=== PATIENT | female | born 1990 | race Hispanic/Latino ===

== ENCOUNTER 2023-06-09 17:22 | Emergency (ER) | payer OTHER, SELFPAY ==
[2023-06-09 17:33] VITALS: BP 115/61; PULSE 81; RESP 16; TEMP 36.4; O2SAT 100
[2023-06-09 19:05] LABS: Influenza A QL RT-PCR Negative (Negative); Influenza B QL RT-PCR Negative (Negative); RSV RNA, RT-PCR Negative (Negative); SARS-CoV-2 RNA PCR Negative (Negative)
[2023-06-09 19:16] LABS: Basophils Percent Auto 0.3 % (0.2-1.2); Eosinophils Percent Auto 0.3 % (0-4.4); Hematocrit 36.4 % (37.0-47.0); Hemoglobin 11.9 g/dL (12.0-15.0); Immature Granulocyte Absolute 0.02 K/mm3 (0.00-0.031); Immature Granulocyte Percent A 0.2 % (0-0.5); Lymphocytes Absolute Auto 2.04 K/mm3 (0.9-3.2); Lymphocytes Percent Auto 23.7 % (18.3-44.2); Mean Corpuscular HGB Conc 32.7 g/dl (32-36); Mean Corpuscular Hemoglobin 28.7 pg (26-34); Mean Corpuscular Volume 87.7 fl (80-100); Mean Platelet Volume 9.4 fl (7.4-10.4); Monocytes Absolute Auto 0.6 K/mm3 (0.1-0.6); Monocytes Percent Auto 6.9 % (2.6-8.5); Neutrophils Absolute Auto 5.9 K/mm3 (1.3-6.7); Neutrophils Percent Auto 68.6 % (45.5-73.1); Platelet Count Result 335 k/mm3 (150-375); Red Blood Count 4.15 M/mm3 (4.2-5.4); Red Cell Distribution Width 12.5 % (11.5-14.5); White Blood Count 8.6 K/mm3 (4.5-10.0)
[2023-06-09 19:25] LABS: Lipase 68 U/L (23-300)
[2023-06-09 19:29] LABS: Alanine Aminotransferase 11 U/L (6-35); Albumin Level 4.5 g/dL (3.5-5.1); Alkaline Phosphatase 52 U/L (38-126); Anion Gap 8 mmol/L (8-16); Aspartate Amino Transferase 24 U/L (14-36); Bilirubin,Total 0.6 mg/dL (0.2-1.3); Blood Urea Nitrogen 10 mg/dL (7-17); CRP < 0.5 mg/dL (<1.0); Calcium 9.7 mg/dL (8.4-10.2); Carbon Dioxide 24 mmol/L (22-30); Chloride 103 mmol/L (98-107); Estimated Glomerular Filt Rate > 60; Glucose 88 mg/dL (65-110); Potassium 4.3 mmol/L (3.4-5.0); Sodium 135 mmol/L (137-145)
--- NOTE | 2023-06-09 19:29 | ED.GENADULT ---
HPI - General Adult General Chief complaint: Abdominal Pain Stated complaint: sore throat, acid reflux Time Seen by Provider: 06/09/23 18:16 Source: patient Mode of arrival: ambulatory Limitations: no limitations History of Present Illness HPI narrative: This is a 32-year-old female who presents to the ED with chief complaint of upper abdominal pain for the past 5 days. Reports the pain is a burning pain and radiates to the central chest. She states she feels reflux coming up in the throat at times causing a sore throat.. Also reports this causes her to feel nauseous and she has had a couple episodes of vomiting. Denies any problems with bowel movements, urinary symptoms, fevers, chills, shortness of breath, syncope, sweats. Related Data Allergies Allergy/AdvReac Type Severity Reaction Status Date / Time No Known Allergies Allergy Verified 06/09/23 21:31 Review of Systems Review of Systems: All systems as dictated in HPI Exam Narrative: GENERAL: Well-appearing, well-nourished, and in no acute distress. HEAD: Normocephalic, atraumatic. EYES: PERRLA and EOMI. ENT: Halitosis present Nares clear, no rhinorrhea or epistaxis. Mucous membranes moist. Oropharynx without tonsillar hypertrophy exudate or other lesions. NECK: Supple. No adenopathy or masses. CHEST: No respiratory distress. Clear to auscultation. No wheezes rales or rhonchi HEART: Regular rate and rhythm. No murmur heard. Normal peripheral pulses. ABDOMEN: Soft, nontender, nondistended, normal active bowel sounds. MSK: Normal range of motion. No edema. SKIN: Warm, dry, no rash. NEURO: Alert and oriented x3. No focal deficits. PSYCH: Normal mood and affect. Course Vital Signs Vital signs: Vital Signs Temperature 97.6 F 06/09/23 17:33 Pulse Rate 81 06/09/23 17:33 Respiratory Rate 16 06/09/23 17:33 Blood Pressure 115/61 06/09/23 17:33 Pulse Oximetry 100 06/09/23 17:33 Oxygen Delivery Room Air 06/09/23 17:33 Temperature 97.6 F 06/09/23 17:33 Pulse Rate 77 06/09/23 21:18 Respiratory Rate 20 06/09/23 21:18 Blood Pressure 116/77 06/09/23 21:13 Pulse Oximetry 100 06/09/23 21:18 Oxygen Delivery Room Air 06/09/23 17:33 Medical Decision Making MDM Narrative Medical decision making narrative: This is a 32-year-old female who presents to the ED for chief complaint of epigastric pain and sore throat. She feels a burning that radiates from the epigastrium into the throat. Vitals are normal. Exam is benign. No evidence of acute abdomen. Lab work is grossly unremarkable. Viral swabs negative. Urine test is positive, which is unexpected to the patient. Overall symptoms are consistent with GERD. Discussed with patient that can increase tendency for GERD. She improved greatly with Pepcid and check cocktail here. Prescription for each Pepcid given. OB referral given. Pt will be discharged in stable condition. Return precautions given and supportive measures discussed. Pt is understanding and agreeable with plan for discharge and follow-up with PCP. Vital Signs Vital Signs: Vital Signs Temperature 97.6 F 06/09/23 17:33 Pulse Rate 81 06/09/23 17:33 Respiratory Rate 16 06/09/23 17:33 Blood Pressure 115/61 06/09/23 17:33 Pulse Oximetry 100 06/09/23 17:33 Oxygen Delivery Room Air 06/09/23 17:33 Temperature 97.6 F 06/09/23 17:33 Pulse Rate 77 06/09/23 21:18 Respiratory Rate 20 06/09/23 21:18 Blood Pressure 116/77 06/09/23 21:13 Pulse Oximetry 100 06/09/23 21:18 Oxygen Delivery Room Air 06/09/23 17:33 Lab Data 06/09/23 19:06 06/09/23 19:06 Labs: Lab Results 06/09/23 06/09/23 Range/Units 18:23 19:06 WBC 8.6 (4.5-10.0) K/mm3 RBC 4.15 L (4.2-5.4) M/mm3 Hgb 11.9 L (12.0-15.0) g/dL Hct 36.4 L (37.0-47.0) % MCV 87.7 (80-100) fl MCH 28.7 (26-34) pg MCHC 32.7 (32-36) g/dl
--- NOTE | 2023-06-09 19:30 | ECG_ITS ---
Measurements Intervals [place] Rate: 80 P: 70 MA: 184 QRS: 81 QRSD: 101 T: 50 QT: 352 QTc: 406 Interpretive Statements SINUS RHYTHM NONSPECIFIC T-WAVE ABNORMALITY ABNORMAL ECG NO PREVIOUS ECG AVAILABLE FOR COMPARISON Electronically Signed On 06-10-2023 15:05:54 DELI SLICER by Tod Gay M.D.
[2023-06-09 19:35] LABS: Appearance Urine Clear (Clear); Bacteria Urine Rare /hpf; Bilirubin Urine Negative (Negative); Blood Urine Negative (Negative); Color Urine Yellow (Yellow); Glucose Urine UA Negative (Negative); Ketones Urine 2+ mg/dL (Negative); Leukocyte Esterase Ur Trace LEU/UL (Negative); Mucus Urine Present /lpf; Need Manual Microscopic Reviewed; Nitrate Urine Negative (Negative); Protein Urine 1+ mg/dL (Negative); Specific Grav Ur 1.028 (1.001-1.035); Squamous Epithelial Cell Urine Occasional /hpf (Few); WBC Urine 0-5 /hpf; pH Urine 5.5 (5.0-9.0)
[2023-06-09 19:38] LABS: Add Urine Microscopic? YES
[2023-06-09] MEDS: BELLADONNA ALK/PHENOB ELIX 10 ML, MAG HYDROX/ALUMINUM HYD/SIMETH 30 ML, LIDOCAINE HCL 2... PO (20:32)
[2023-06-09] MEDS: ONDANSETRON INJ 4 MG/2 ML VIAL IV PUSH (20:37)
[2023-06-09] MEDS: FAMOTIDINE 20 MG/2 ML VIAL IV PUSH (20:38)
[2023-06-09 20:41] VITALS: BP 114/70; PULSE 89; RESP 20; O2SAT 100
[2023-06-09] MEDS: Please add drug allergy info to patient profile. 1 EACH XX (20:41)
[2023-06-09 21:13] VITALS: BP 116/77
[2023-06-09 21:18] VITALS: PULSE 77; RESP 20; O2SAT 100
== END 2023-06-09 21:19 | disposition home or self-care (01) ==
PROVIDERS: Emergency Provider Physician Assistant
DX: K21.9 Gastro-esophageal reflux disease without esophagitis (principal); Z20.822 Contact with and (suspected) exposure to COVID-19
CPT/HCPCS: 36415; 80053; 81001; 81025; 83690; 85025; 86140; 87637; 93005; 96374; 96375; 99284; A9270; J2405